=== PATIENT | female | born 1985 | race Hispanic/Latino ===

== ENCOUNTER 2018-04-22 20:13 | Emergency (ER) | payer SELFPAY ==
[2018-04-22] MEDS ORDERED: SODIUM CHLORIDE 0.9% 1000ML 1,000 ML IVS ONE (20:44)
[2018-04-22] MEDS ORDERED: KETOROLAC TROMETHAMINE INJ 30 MG/ML VIAL IV ONE (20:44)
[2018-04-22] MEDS ORDERED: ONDANSETRON ODT 8 MG TAB SL ONE (20:44)
--- NOTE | 2018-04-22 20:48 | ED.PDOC ---
History of Present Illness - General Chief Complaint: Abdominal Pain Stated Complaint: Abd pain and cramping Time Seen by Provider: 04/22/18 20:44 Information Source: patient Exam Limitations: no limitations - History of Present Illness Initial Comments: patient comes in today for severe abdominal pain. Patient states this morning she ate breakfast at [employer] that did not sit well with her. She later had reflux and severe nausea and subsequently emesis. She had no fever or chills. She did have some loose stools. In the meantime her abdominal pain started worsening with severe abdominal cramping listed as a 10/10 in severity. Patient states it does not radiate but the pain just has not gotten better and seems to be getting worse. She has had problems with abdominal pain in the past especially after she eats something like [employer] or ice cream. Patient has known gallbladder stones but she has not had attack for over a year and she states that he does not normally hurt this badly. Patient states she normally watches what she eats and very rarely eats processed foods. He denies any past medical issues. She did have a hysterectomy and subsequently did have to have a second surgery for a ruptured vaginal cuff. Patient has not had any difficulty since the repair. Patient does not smoke, drink, take illicit sepsis, or take knxb-yhb-bnednez medications. Abdominal Pain Onset Location: RUQ, LUQ, epigastric Pain Radiation: no radiation Quality: severe, sharpness Timing/Duration: 7-24 hours Improving Factors: nothing Worsening Factors: eating Associated Symptoms: heartburn, nausea/vomiting Review of Systems - Review of Systems Constitutional: States: no symptoms reported, chills. Denies: fever EENTM: States: no symptoms reported. Denies: eye pain, ear pain, nose pain, throat pain Respiratory: States: no symptoms reported. Denies: cough, short of breath, wheezing Cardiology: States: no symptoms reported. Denies: chest pain, edema, palpitations Gastrointestinal/Abdominal: States: see HPI, abdominal pain, diarrhea, nausea, vomiting Genitourinary: States: no symptoms reported. Denies: discharge, dysuria, frequency Musculoskeletal: States: no symptoms reported Skin: States: no symptoms reported Past Medical History (General) - Patient Medical History Hx Seizures: No Hx Stroke: No Hx Asthma: No Hx Congestive Heart Failure: No Hx Hypertension: No Hx Diabetes: No Hx Cancer: No Hx Hepatitis C: No Hx MRSA: No Surgical History: Hysterectomy - Vaccination History Hx Tetanus, Diphtheria Vaccination: No Hx Influenza Vaccination: No Hx Pneumococcal Vaccination: No Immunizations Up to Date: No - Social History Hx Tobacco Use: No Hx Alcohol Use: No Hx Substance Use: No Hx Substance Use Treatment: No Hx Depression: No - Female History Patient is a Female of Child Bearing Age (10 -59 yrs old): Yes Patient : No Family Medical History - Family History Mother Living Status: Still Living Hx Family Hypertension: Yes Hx Family;Other: Hx of TB Physical Exam - Physical Exam General Appearance: Alert, Restless Eyes, Ears, Nose, Throat Exam: PERRL/EOMI, normal ENT inspection, TMs normal, pharynx normal Neck: non-tender, full range of motion, supple, normal inspection Respiratory: chest non-tender, lungs clear, normal breath sounds, no respiratory distress Cardiovascular/Chest: normal peripheral pulses, regular rate, rhythm, no edema, no gallop, no JVD, no murmur Peripheral Pulses: No deficit Gastrointestinal/Abdominal: soft, abnormal bowel sounds - hypoactive BS, distended, tenderness - TTP at epigastric area and LUQ and RUQ no rebound and no guarding Back Exam: no CVA tenderness Neurologic: alert, oriented x 3 Progress - Progress Progress: Patient doing much better after IVF and Toradol. Patient counseled to stay away from fatty meals and fast food. She voices understanding. She will return to ER for return to pain, intractable emesis, or worsening symptoms. 04/22/18 21:37 - Results/Orders Results/Orders: Patient Name: ARGELIA HUSAIN Gender: Female Date of : 1985 Referring Physician: BERNARDINO GARCIA Organization: [facility] Accession Number: [id number] Requested Date: April 22, 2018 20:44 Report Status: Final Requested Procedure: 1 Procedure Description: Abdoment/Pelvis w/o Contrast Modality: CT Findings Reporting MD: Daniella Saha Fellow MD: Not available Dictation Time: [employer]: Not available Staff Pharmacist Date: EXAM DESCRIPTION: Abdoment/Pelvis w/o Contrast CLINICAL HISTORY: 33 years Female, severe pain/known gallbladder disease Comparison: 07/02/2010 TECHNIQUE: Contiguous axial images of the abdomen and pelvis were obtained followed by reconstruction images. This exam was performed according to our departmental dose-optimization program, which includes automated exposure control, adjustment of the mA and/or kV according to patient size and/or use of iterative reconstruction technique. FINDINGS: Lung bases: Minimal left basilar subsegmental atelectasis. Liver: No gross finding. Gallbladder/Bile ducts: Partially contracted gallbladder with multiple gallstones. No finding to suggest pericholecystic fluid or significant pericholecystic inflammatory changes. No intra or extrahepatic bile duct dilatation. Spleen: Within normal limits Pancreas: Within normal limits Adrenal glands: Within normal limits Kidneys/Bladder: No renal stones. No hydronephrosis. No pericholecystic fluid. GI tract: No evidence of obstruction or active inflammatory process. Postsurgical changes in the expected region of the appendix. Uterus/adnexa: Uterus not identified, likely surgically removed. No suspicious adnexal lesion. [facility]. [address] [place] [address] F [phone] [email or web address] Report exported on Apr 22, 2018 21:31:23 [id number] - Page 2 of 2 Vascular structures: Within normal limits in this unenhanced study Free fluid: No free fluid. Lymph nodes: No radiographically enlarged lymph nodes Soft tissues: Anterior lower abdomen surgical scar. Bones: No acute osseous finding IMPRESSION: 1. No acute intra-abdominal finding in this unenhanced study. 2. Cholelithiasis without imaging findings of acute cholecystitis. Additional correlation with a right upper quadrant abdomen ultrasound can be obtained as clinically warranted 04/22/18 20:44 Sodium Chloride 0.9% 1000ML [Ns 1000 ml] 1,000 ml IVS ONCE 04/22/18 21:20 URINALYSIS Stat Laboratory Results WBC 9.0 K/mm3 (4.8-10.8) 04/22/18 20:44 RBC 4.68 M/mm3 (4.20-5.40) 04/22/18 20:44 Hgb 12.6 gm/dL (12.0-16.0) 04/22/18 20:44 Hct 37.7 % (36.0-47.0) 04/22/18 20:44 MCV 80.5 fl (81.0-99.0) L 04/22/18 20:44 MCH 26.9 pg (27.0-31.0) L 04/22/18 20:44 MCHC 33.5 g/dL (33.0-37.0) 04/22/18 20:44 RDW 16.1 % (11.5-14.5) H 04/22/18 20:44 Plt Count 263 K/mm3 (130-400) 04/22/18 20:44 MPV 8.2 fl (7.40-10.4) 04/22/18 20:44 Absolute Neuts (auto) 6.60 K/uL (1.8-6.8) 04/22/18 20:44 Absolute Lymphs (auto) 1.60 K/uL (1.0-3.4) 04/22/18 20:44 Absolute Monos (auto) 0.50 K/uL (0.2-0.8) 04/22/18 20:44 Absolute Eos (auto) 0.30 K/uL (0.0-0.4) 04/22/18 20:44 Absolute Basos (auto) 0.00 K/uL (0.0-0.1) 04/22/18 20:44 Neutrophils % 73.7 % (42.0-78.0) 04/22/18 20:44 Lymphocytes % 17.5 % (20.0-50.0) L 04/22/18 20:44 Monocytes % 5.5 % (2.0-9.0) 04/22/18 20:44 Eosinophils % 2.9 % (1.0-5.0) 04/22/18 20:44 Basophils % 0.4 % (0.0-2.0) 04/22/18 20:44 Sodium 137 mmol/L (135-145) 04/22/18 20:44 Potassium 3.6 mmol/L (3.6-5.0) 04/22/18 20:44 Chloride 104 mmol/L (101-111) 04/22/18 20:44 Carbon Dioxide 26 mmol/L (21-31) 04/22/18 20:44 Anion Gap 10.6 (12-18) L 04/22/18 20:44 BUN 6 mg/dL (7-18) L 04/22/18 20:44 Creatinine 0.46 mg/dL (0.6-1.3) L 04/22/18 20:44 BUN/Creatinine Ratio 13.0 (10-20) 04/22/18 20:44 Random Glucose 101 mg/dL (70-105) 04/22/18 20:44 Serum Osmolality 271.6 mOsm/L (275-295) L 04/22/18 20:44 Calcium 9.4 mg/dL (8.4-10.2) 04/22/18 20:44 Total Bilirubin 0.9 mg/dL (0.2-1.0) 04/22/18 20:44 AST 26 IU/L (10-42) 04/22/18 20:44 ALT 24 IU/L (10-60) 04/22/18 20:44 Alkaline Phosphatase 117 IU/L (42-121) 04/22/18 20:44 Serum Total Protein 7.5 gm/dL (6.4-8.2) 04/22/18 20:44 Albumin 4.1 g/dl (3.2-5.5) 04/22/18 20:44 Globulin 3.4 gm/dL (2.3-3.5) 04/22/18 20:44 Albumin/Globulin Ratio 1.2 (1.1-1.9) 04/22/18 20:44 Amylase 56 U/L (28-100) 04/22/18 20:44 Lipase 26 U/L (22-51) 04/22/18 20:44 Departure - Departure Clinical Impression: Gallbladder attack Disposition: Discharge to Home or Self Care Condition: Good Departure Forms: ED Discharge - Pt. Copy, Patient Portal Self Enrollment Instructions: DI for Abdominal Pain-Adult Diet: low fat, low cholesterol Referrals: Ginger Guzman NP [Primary Care Provider] - 1-2 Weeks Home Medications: Ambulatory Orders Meclizine HCl 25 mg PO Q6HR PRN #20 tab 04/26/16 Additional Instructions: return to ER for return to pain, intractable emesis, or worsening symptoms.
--- NOTE | 2018-04-22 21:29 | CT ---
EXAM DESCRIPTION: Abdoment/Pelvis w/o Contrast CLINICAL HISTORY: 33 years Female, severe pain/known gallbladder disease Comparison: 07/02/2010 TECHNIQUE: Contiguous axial images of the abdomen and pelvis were obtained followed by reconstruction images. This exam was performed according to our departmental dose-optimization program, which includes automated exposure control, adjustment of the mA and/or kV according to patient size and/or use of iterative reconstruction technique. FINDINGS: Lung bases: Minimal left basilar subsegmental atelectasis. Liver: No gross finding. Gallbladder/Bile ducts: Partially contracted gallbladder with multiple gallstones. No finding to suggest pericholecystic fluid or significant pericholecystic inflammatory changes. No intra or extrahepatic bile duct dilatation. Spleen: Within normal limits Pancreas: Within normal limits Adrenal glands: Within normal limits Kidneys/Bladder: No renal stones. No hydronephrosis. No pericholecystic fluid. GI tract: No evidence of obstruction or active inflammatory process. Postsurgical changes in the expected region of the appendix. Uterus/adnexa: Uterus not identified, likely surgically removed. No suspicious adnexal lesion. Vascular structures: Within normal limits in this unenhanced study Free fluid: No free fluid. Lymph nodes: No radiographically enlarged lymph nodes Soft tissues: Anterior lower abdomen surgical scar. Bones: No acute osseous finding IMPRESSION: 1. No acute intra-abdominal finding in this unenhanced study. 2. Cholelithiasis without imaging findings of acute cholecystitis. Additional correlation with a right upper quadrant abdomen ultrasound can be obtained as clinically warranted. Electronically signed by: Daniella Saha MD 04/22/2018 9:27 PM CDT
[2018-04-22] MEDS ORDERED: ALUM & MAG HYDROX-SIMETHICONE 30 ML, LIDOCAINE VISCOUS 2% 15 ML PO ONE ×2 (22:30)
[2018-04-22] MEDS ORDERED: ALUM & MAG HYDROX-SIMETHICONE 30 ML UD ONE (22:33)
[2018-04-22] MEDS ORDERED: LIDOCAINE HCL 2% (MOUTH-THROAT) 15 ML UD ONE (22:33)
[2018-04-22 22:41] VITALS: BP 111/67; TEMP 98.2; O2SAT 99
== END 2018-04-22 22:41 | disposition home or self-care (01) ==
LOC: ER 20:13
DX: K80.20 Calculus of gallbladder without cholecystitis without obstruction (principal); R19.7 Diarrhea, unspecified; R11.2 Nausea with vomiting, unspecified
CPT/HCPCS: 36415; 74176; 80053; 81001; 82150; 83690; 85025; J1885; J7030

== ENCOUNTER 2018-04-27 08:23 | Emergency (ER) | payer SELFPAY ==
[2018-04-27 08:35] VITALS: TEMP 98.4
[2018-04-27] MEDS ORDERED: ONDANSETRON INJ 4 MG/2 ML VIAL IM ONE (08:43)
[2018-04-27] MEDS ORDERED: MORPHINE SULFATE INJ 10 MG/ML VIAL IM ONE (08:43)
--- NOTE | 2018-04-27 08:46 | ED.PDOC ---
History of Present Illness - General Chief Complaint: Abdominal Pain Time Seen by Provider: 04/27/18 08:42 Information Source: patient - History of Present Illness Initial Comments: SHE WAS HERE WEDNESDAY AFTER EATING GRAVY AND BISCUITS AT [facility]. SHE WAS WORKED UP WITH LAB AND A CT ABDOMEN AND PELVIS-NEGATIVE. SHE RETURNS TODAY WITH LEFT SIDED LUQ PAIN AND CHEST PAIN THAT INCREASES WITH DEEP INSPIRATION. DENIES FEVER, HAS HAD NAUSEA BUT NO DIARRHEA. Abdominal Pain Onset Location: LUQ Pain Radiation: chest Quality: stabbing Timing/Duration: days Improving Factors: nothing Worsening Factors: other - DEEP INSPIRATION Associated Symptoms: denies symptoms Review of Systems - Review of Systems Constitutional: States: no symptoms reported EENTM: States: no symptoms reported Respiratory: States: short of breath Cardiology: States: chest pain Gastrointestinal/Abdominal: States: abdominal pain Genitourinary: States: no symptoms reported Musculoskeletal: States: no symptoms reported Skin: States: no symptoms reported Neurological: States: no symptoms reported Endocrine: States: no symptoms reported Hematologic/Lymphatic: States: no symptoms reported All other Systems: Reviewed and Negative Past Medical History (General) - Patient Medical History Hx Seizures: No Hx Stroke: No Hx Asthma: No Hx of COPD: No Hx Cardiac Disorders: No Hx Congestive Heart Failure: No Hx Hypertension: No Hx Diabetes: No Hx Cancer: No Hx Hepatitis C: No Hx MRSA: No - Vaccination History Hx Tetanus, Diphtheria Vaccination: No Hx Influenza Vaccination: No Hx Pneumococcal Vaccination: No Immunizations Up to Date: No - Social History Hx Tobacco Use: No Hx Chewing Tobacco Use: No Hx Alcohol Use: No Hx Substance Use: No Hx Substance Use Treatment: No Hx Depression: No Feels Threatened In Home Enviroment: No Feels Threatened In a Relationship: No Hx Physical Abuse: No Hx Emotional Abuse: No Hx Suspected Abuse: No - Female History Patient is a Female of Child Bearing Age (10 -59 yrs old): Yes Patient : No - Triage Comment ED Triage Comment: hx of Hyst Family Medical History - Family History Mother Living Status: Still Living Hx Family Hypertension: Yes Hx Family;Other: Hx of TB Physical Exam - Physical Exam General Appearance: Alert, Obvious distress, Well Developed, Well Groomed, Well Nourished Eyes, Ears, Nose, Throat Exam: PERRL/EOMI, normal ENT inspection, pharynx normal Neck: non-tender, full range of motion, supple, normal inspection Respiratory: chest non-tender, lungs clear, normal breath sounds, no respiratory distress Cardiovascular/Chest: normal peripheral pulses, regular rate, rhythm, no edema Peripheral Pulses: No deficit Gastrointestinal/Abdominal: normal bowel sounds, non tender, soft, no organomegaly, no pulsatile mass Rectal Exam: deferred Back Exam: normal inspection Extremity: normal range of motion Neurologic: no motor/sensory deficits, alert, normal mood/affect, oriented x 3 Skin Exam: normal color Lymphatic: no adenopathy Progress - Results/Orders Results/Orders: THE X RAY HAS A SMALL LEFT SIDED EFFUSION ON THE LEFT COSTODIAPHRAGMATIC ANGLE, COULD BE FLUID AN INFILTRATE OR ATELECTASIS. GIVEN THE AMOUNT OF PAIN I WILL TREAT A PNEUMONIA AND THE PATIENT WILL F/U THE PCP IN 7-10 DAYS. Departure - Departure Clinical Impression: Pleurisy with effusion Community acquired pneumonia Qualifiers: Laterality: left Lung location: lower lobe of lung Qualified Code(s): J18.1 - Lobar pneumonia, unspecified organism Time of Disposition: 09:49 Disposition: Discharge to Home or Self Care Condition: Good Departure Forms: ED Discharge - Pt. Copy, Patient Portal Self Enrollment Instructions: Pneumonia in Adults Referrals: Ginger Guzman NP [Primary Care Provider] - 1-2 Weeks Prescriptions: Tramadol HCl 50 mg PO Q6HRS #20 tab Diclofenac Potassium 50 mg PO Q8HRS #21 tab Amoxicillin & Pot Clavulanate [Augmentin Tab] 875 mg PO BID #20 tab Home Medications: Ambulatory Orders Meclizine HCl 25 mg PO Q6HR PRN #20 tab 04/26/16 Amoxicillin & Pot Clavulanate [Augmentin Tab] 875 mg PO BID #20 tab 04/27/18 Diclofenac Potassium 50 mg PO Q8HRS #21 tab 04/27/18 Tramadol HCl 50 mg PO Q6HRS #20 tab 04/27/18
--- NOTE | 2018-04-27 09:29 | RAD ---
Procedure: XR ABDOMEN SUPINE AND ERECT WITH CHEST (ABD ACUTE SERIES) Exam Date: 04/27/2018 Ordering Provider: Nir Alberto Clinical Indication: ABDOMEN AND CHEST PAIN Comparison: 04/22/2018 CT abdomen pelvis Findings: Upright chest x-ray: Cardiomediastinal silhouette is unremarkable. Left basilar atelectasis and/or infiltrate. Right lung is clear. Question a small left pleural effusion. No significant effusion on the right. No pneumothorax. Flat and upright abdomen: Nonobstructive bowel gas pattern. There is no pneumoperitoneum. There are no suspicious calcifications. No acute osseous abnormalities. Impression: 1. Left basilar atelectasis and/or infiltrate with possible small left pleural effusion. Electronically signed by: Sai Diaz MD 04/27/2018 9:28 AM CDT
[2018-04-27] MEDS ORDERED: cefTRIAXone SODIUM 1 GM VIAL IM ONE (09:44)
[2018-04-27] MEDS ORDERED: LIDOCAINE 1% 10 ML VIAL INJ ONE (09:56)
[2018-04-27 10:10] VITALS: BP 120/76; O2SAT 96
== END 2018-04-27 10:17 | disposition home or self-care (01) ==
LOC: ER 08:23
DX: J18.9 Pneumonia, unspecified organism (principal); R10.12 Left upper quadrant pain; Z86.11 Personal history of tuberculosis
CPT/HCPCS: 74019; J0696; J2270; J2405

== ENCOUNTER 2019-06-28 15:45 | Emergency (ER) | payer SELFPAY ==
--- NOTE | 2019-06-28 16:20 | ED.PDOC ---
History of Present Illness - General Chief Complaint: Abdominal Pain Time Seen by Provider: 06/28/19 16:19 Information Source: patient Exam Limitations: no limitations - History of Present Illness Initial Comments: 34 yo F who presents for lower abd pain onset this am with associated L flank pain and urinary frequency. Pain is constant, nonradiating, sharp. Denies f/c, cough, congestion, CP, SOB, N/V/D, dysuria, hematuria, vag sx. Review of Systems - Review of Systems Constitutional: Denies: chills, fever EENTM: States: no symptoms reported Respiratory: Denies: cough, short of breath Cardiology: Denies: chest pain, palpitations Gastrointestinal/Abdominal: Denies: constipation, diarrhea, nausea, vomiting Genitourinary: States: frequency, other - L flank pain. Denies: discharge, dysuria, hematuria Musculoskeletal: Denies: back pain, neck pain Skin: Denies: change in color, rash Neurological: Denies: headache, numbness, weakness Endocrine: Denies: increased thirst, increased urine Past Medical History (General) - Patient Medical History Hx Seizures: No Hx Stroke: No Hx Asthma: No Hx of COPD: No Hx Cardiac Disorders: No Hx Congestive Heart Failure: No Hx Hypertension: No Hx Diabetes: No Hx Cancer: No Hx Hepatitis C: No Hx MRSA: No - Vaccination History Hx Tetanus, Diphtheria Vaccination: No Hx Influenza Vaccination: No Hx Pneumococcal Vaccination: No - Social History Hx Tobacco Use: No Hx Chewing Tobacco Use: No Hx Alcohol Use: No Hx Substance Use: No Hx Substance Use Treatment: No Hx Depression: No Hx Physical Abuse: No Hx Emotional Abuse: No Hx Suspected Abuse: No - Female History Patient : No Family Medical History - Family History Mother Living Status: Still Living Hx Family Hypertension: Yes Hx Family;Other: Hx of TB Physical Exam - Physical Exam General Appearance: Alert, Comfortable, No apparent distress, Well Developed, Well Nourished Eyes, Ears, Nose, Throat Exam: normal ENT inspection Neck: non-tender, full range of motion, supple Respiratory: chest non-tender, lungs clear, normal breath sounds, no respiratory distress, no accessory muscle use Cardiovascular/Chest: normal peripheral pulses, regular rate, rhythm, no edema, no gallop, no JVD, no murmur Peripheral Pulses: No deficit Gastrointestinal/Abdominal: normal bowel sounds, non tender, soft, no organomegaly, no pulsatile mass Back Exam: normal inspection, no CVA tenderness, no vertebral tenderness Extremity: normal range of motion, non-tender, normal inspection, no pedal edema, no calf tenderness Neurologic: no motor/sensory deficits, alert, normal mood/affect Skin Exam: normal color, warm/dry Progress - Progress Progress: 06/28/19 18:55 I have explained and reviewed all results with the pt and provided a copy of her results. Pt is feeling improved. I explained that emergent conditions may arise and to return to the ER for new, worsening, or any persistent conditions. I've explained the importance of f/u for recheck. All questions and concerns addressed at this time. Pt understands and agrees with plan. Pt well appearing, NAD, is stable for discharge. Pt and family are comfortable wtih d/c home. Tiffany Looney MD Emergency Medicine Physician Billing Number [id number] - Results/Orders Results/Orders: 06/28/19 17:34 Hold Metformin x 48Hrs [id number] Laboratory Results - last 24 hr 06/28/19 06/28/19 06/28/19 16:20 16:20 16:30 WBC 6.5 RBC 4.52 Hgb 12.3 Hct 36.5 MCV 80.8 L MCH 27.2 MCHC 33.6 RDW 14.7 H Plt Count 304 MPV 8.2 Absolute Neuts (auto) 4.70 Absolute Lymphs (auto) 1.20 Absolute Monos (auto) 0.40 Absolute Eos (auto) 0.10 Absolute Basos (auto) 0.00 Neutrophils % 72.7 Lymphocytes % 18.9 L Monocytes % 5.8 Eosinophils % 2.0 Basophils % 0.6 Sodium 142 Potassium 3.7 Chloride 107 Carbon Dioxide 24 Anion Gap 14.7 BUN 9 Creatinine 0.52 L BUN/Creatinine Ratio 17.3 Random Glucose 111 H Serum Osmolality 282.5 Calcium 8.8 Total Bilirubin 1.5 H AST 26 ALT 36 Alkaline Phosphatase 148 H Serum Total Protein 8.0 Albumin 4.4 Globulin 3.6 H Albumin/Globulin Ratio 1.2 Urine Color Yellow Urine Appearance Clear Urine pH 5.5 Ur Specific [place] >= 1.030 Urine Protein Negative Urine Glucose (UA) Negative Urine Ketones Negative Urine Blood Negative Urine Nitrite Negative Urine Bilirubin Negative Urine Urobilinogen 0.2 Ur Leukocyte Esterase Negative Urine RBC 0-1 Urine WBC 1-3 Ur Epithelial Cells 5-10 Urine Bacteria 1+ Urine Mucus Small Urine HCG, Qual 06/28/19 16:34 WBC RBC Hgb Hct MCV MCH MCHC RDW Plt Count MPV Absolute Neuts (auto) Absolute Lymphs (auto) Absolute Monos (auto) Absolute Eos (auto) Absolute Basos (auto) Neutrophils % Lymphocytes % Monocytes % Eosinophils % Basophils % Sodium Potassium Chloride Carbon Dioxide Anion Gap BUN Creatinine BUN/Creatinine Ratio Random Glucose Serum Osmolality Calcium Total Bilirubin AST ALT Alkaline Phosphatase Serum Total Protein Albumin Globulin Albumin/Globulin Ratio Urine Color Urine Appearance Urine pH Ur Specific [place] Urine Protein Urine Glucose (UA) Urine Ketones Urine Blood Urine Nitrite Urine Bilirubin Urine Urobilinogen Ur Leukocyte Esterase Urine RBC Urine WBC Ur Epithelial Cells Urine Bacteria Urine Mucus Urine HCG, Qual Negative CT abd/pelvis with contrast: EXAM DESCRIPTION: CT ABDOMEN AND PELVIS WITH CONTRAST CLINICAL HISTORY: pain in the abdomen COMPARISON: Previous CT abdomen and pelvis April 22, 2018 TECHNIQUE: CT of the abdomen and pelvis are performed during IV bolus administration of 100 mL of Optiray 320. No oral contrast. FINDINGS: In the lower chest, the lung bases are clear. Trace right pleural effusion. Heart size is normal with small amount of pericardial fluid. CT abdomen Innumerable gallstones in the gallbladder. These were present on the previous study as well. Spleen is large measuring 14 cm in length. This appeared large on the previous study as well. Otherwise the liver, pancreas, adrenal glands, stomach and kidneys are and unremarkable in appearance. No inflammation around the pancreas. No renal stones or hydronephrosis. No bowel dilatation to suggest obstruction. No free air or free fluid. CT pelvis Appendix is surgically absent. Small cysts in the anterior lower abdomen appear benign and unchanged compared to the previous study. The more prominent cyst is in the region of the resected appendix 4.7 cm. The smaller cyst is posterior to the left rectus abdominis muscle 2.8 cm. With no change since previous study, malignant process is not thought likely. Lymphoceles, old hematomas or seromas thought most likely. Small mesenteric cysts or omental cysts might also be considered. Previous CT abdomen and pelvis July 28, 2009 and July 02, 2010 showed no pelvic cysts at that time. No inflammation around the cecum or terminal ileum or sigmoid colon. Bladder and distal ureters are negative for stones. Normal enhancement of pelvic vessels. No inguinal or lower pelvic adenopathy. Uterus and ovaries are not seen, evidently surgically absent. Bone window images are negative for fracture or lytic lesion. Coronal and sagittal reformatted images confirm the findings. IMPRESSION: Gallstones without changes to suggest acute cholecystitis. Splenomegaly. Benign-appearing cysts in the pelvis, unchanged from previous. This exam was performed according to our departmental dose-optimization program, which includes automated exposure control, adjustment of the mA and/or kV according to patient size and/or use of iterative reconstruction technique. Total DLP equals 2027.51 mGycm. Electronically signed by: Neftali Lane MD 06/28/2019 6:17 PM CARE TAKER Vital Signs - 24 hr 06/28/19 06/28/19 06/28/19 16:20 17:20 18:18 Temperature 97.6 F 99.2 F Pulse Rate [ 88 69 72 Left Radial] Respiratory 18 18 18 Rate Blood Pressure 119/87 116/69 118/78 [Left Arm] O2 Sat by Pulse 100 98 99 Oximetry 06/28/19 06/28/19 19:11 19:22 Temperature 99.8 F H 99.8 F H Pulse Rate [ 73 73 Left Radial] Respiratory 16 16 Rate Blood Pressure 122/81 122/81 [Left Arm] O2 Sat by Pulse 98 98 Oximetry Departure - Departure Clinical Impression: Abdominal pain Qualifiers: Abdominal location: unspecified location Qualified Code(s): R10.9 - Unspecified abdominal pain Time of Disposition: 18:54 Disposition: Discharge to Home or Self Care Health Concerns: Condition: stable Departure Forms: ED Discharge - Pt. Copy, Patient Portal Self Enrollment Instructions: DI for Abdominal Pain-Adult Referrals: Ginger Guzman NP [Primary Care Provider] - 1-5 Days Prescriptions: Nitrofurantoin Monohydrate Mac [Macrobid] 100 mg PO BID #10 capsule Home Medications: Ambulatory Orders Meclizine HCl 25 mg PO Q6HR PRN #20 tab 04/26/16 Amoxicillin & Pot Clavulanate [Augmentin Tab] 875 mg PO BID #20 tab 04/27/18 Diclofenac Potassium 50 mg PO Q8HRS #21 tab 04/27/18 Tramadol HCl 50 mg PO Q6HRS #20 tab 04/27/18 Nitrofurantoin Monohydrate Mac [Macrobid] 100 mg PO BID #10 capsule 06/28/19 Comments: Follow up: [facility] As needed, if symptoms worsen
[2019-06-28] MEDS ORDERED: KETOROLAC TROMETHAMINE INJ 30 MG/ML VIAL IV ONE (17:47)
--- NOTE | 2019-06-28 18:18 | CT ---
EXAM DESCRIPTION: CT ABDOMEN AND PELVIS WITH CONTRAST CLINICAL HISTORY: pain in the abdomen COMPARISON: Previous CT abdomen and pelvis April 22, 2018 TECHNIQUE: CT of the abdomen and pelvis are performed during IV bolus administration of 100 mL of Optiray 320. No oral contrast. FINDINGS: In the lower chest, the lung bases are clear. Trace right pleural effusion. Heart size is normal with small amount of pericardial fluid. CT abdomen Innumerable gallstones in the gallbladder. These were present on the previous study as well. Spleen is large measuring 14 cm in length. This appeared large on the previous study as well. Otherwise the liver, pancreas, adrenal glands, stomach and kidneys are and unremarkable in appearance. No inflammation around the pancreas. No renal stones or hydronephrosis. No bowel dilatation to suggest obstruction. No free air or free fluid. CT pelvis Appendix is surgically absent. Small cysts in the anterior lower abdomen appear benign and unchanged compared to the previous study. The more prominent cyst is in the region of the resected appendix 4.7 cm. The smaller cyst is posterior to the left rectus abdominis muscle 2.8 cm. With no change since previous study, malignant process is not thought likely. Lymphoceles, old hematomas or seromas thought most likely. Small mesenteric cysts or omental cysts might also be considered. Previous CT abdomen and pelvis July 28, 2009 and July 02, 2010 showed no pelvic cysts at that time. No inflammation around the cecum or terminal ileum or sigmoid colon. Bladder and distal ureters are negative for stones. Normal enhancement of pelvic vessels. No inguinal or lower pelvic adenopathy. Uterus and ovaries are not seen, evidently surgically absent. Bone window images are negative for fracture or lytic lesion. Coronal and sagittal reformatted images confirm the findings. IMPRESSION: Gallstones without changes to suggest acute cholecystitis. Splenomegaly. Benign-appearing cysts in the pelvis, unchanged from previous. This exam was performed according to our departmental dose-optimization program, which includes automated exposure control, adjustment of the mA and/or kV according to patient size and/or use of iterative reconstruction technique. Total DLP equals 7.51 mGycm. Electronically signed by: Neftali Lane MD 06/28/2019 6:17 PM BRUSH POL[employer]ER
[2019-06-28 19:12] VITALS: BP 122/81; TEMP 99.8; O2SAT 98
== END 2019-06-28 19:23 | disposition home or self-care (01) ==
LOC: ER 15:45
DX: R10.30 Lower abdominal pain, unspecified (principal); R35.0 Frequency of micturition; K80.20 Calculus of gallbladder without cholecystitis without obstruction; R16.1 Splenomegaly, not elsewhere classified; Z90.49 Acquired absence of other specified parts of digestive tract
CPT/HCPCS: 74177; 80053; 81001; 81025; 85025; J1885

== ENCOUNTER 2020-07-20 17:21 | Emergency (ER) | payer SELFPAY ==
--- NOTE | 2020-07-20 18:29 | ED.PDOC ---
History of Present Illness - General Chief Complaint: General Stated Complaint: Cough, sore throat, lower abd pain, nausea, tired Time Seen by Provider: 07/20/20 17:39 Source: patient, RN notes reviewed, Vital Signs reviewed Exam Limitations: no limitations - History of Present Illness Initial Comments: Patient is a 35-year-old white female who presents with complaints of sore throat, fatigue, malaise and body aches. This is been ongoing for the last 5 days. Nothing makes the symptoms better. She is worse with any type of exertion. She also complains of intermittent mild shortness of breath. The shortness of breath is worse with exertion. It is improved with rest. Timing/Duration: 1 week, getting worse Severity: moderate Improving Factors: nothing Worsening Factors: movement Associated Symptoms: cough, loss of appetite, malaise, shortness of breath, weakness, other - Sore throat Allergies/Adverse Reactions: Allergies Promethazine [From Phenergan] Adverse Reaction (Verified 07/20/20 17:48) Home Medications: Ambulatory Orders Meclizine HCl 25 mg PO Q6HR PRN #20 tab 04/26/16 Amoxicillin & Pot Clavulanate [Augmentin Tab] 875 mg PO BID #20 tab 04/27/18 Diclofenac Potassium 50 mg PO Q8HRS #21 tab 04/27/18 Tramadol HCl 50 mg PO Q6HRS #20 tab 04/27/18 Nitrofurantoin Monohydrate Mac [Macrobid] 100 mg PO BID #10 capsule 06/28/19 Methylprednisolone [Medrol Dose Alexandro] 4 mg PO DAILY 6 Days #21 tab 07/20/20 Review of Systems - Review of Systems Constitutional: States: see HPI, chills, fever, malaise, weakness EENTM: States: see HPI, throat pain. Denies: eye pain, blurred vision, double vision, nose congestion, mouth pain, mouth swelling Respiratory: States: see HPI, cough, short of breath. Denies: stridor, wheezing Cardiology: States: no symptoms reported. Denies: chest pain, palpitations, syncope Gastrointestinal/Abdominal: States: see HPI, abdominal pain, nausea. Denies: diarrhea, vomiting Musculoskeletal: States: no symptoms reported. Denies: back pain, joint pain, joint swelling, neck pain Skin: States: no symptoms reported. Denies: change in color, rash Neurological: States: see HPI, weakness. Denies: tingling, tremors Endocrine: States: no symptoms reported. Denies: increased hunger, increased thirst, increased urine Hematologic/Lymphatic: States: no symptoms reported. Denies: blood clots, easy bleeding, easy bruising All other Systems: Reviewed and Negative Past Medical History (General) - Patient Medical History Hx Seizures: No Hx Stroke: No Hx Dementia: No Hx Asthma: No Hx of COPD: No Hx Cardiac Disorders: No Hx Congestive Heart Failure: No Hx Pacemaker: No Hx Hypertension: No Hx Thyroid Disease: No Hx Diabetes: No Hx Gastroesophageal Reflux: No Hx Renal Disease: No Hx Cancer: No Hx of HIV: No Hx Hepatitis C: No Hx MRSA: No Surgical History: Hysterectomy - Vaccination History Hx Tetanus, Diphtheria Vaccination: No Hx Influenza Vaccination: No Hx Pneumococcal Vaccination: No - Social History Hx Tobacco Use: No Hx Chewing Tobacco Use: No Hx Alcohol Use: No Hx Substance Use: No Hx Substance Use Treatment: No Hx Depression: No Hx Physical Abuse: No Hx Emotional Abuse: No Hx Suspected Abuse: No - Female History Patient is a Female of Child Bearing Age (10 -59 yrs old): No Patient : No - Hyst Family Medical History - Family History Mother Family History: No Known Living Status: Still Living Hx Family Asthma: No Hx Family Congestive Heart Failure: No Hx Family Hypertension: Yes Hx Family;Other: Hx of TB Physical Exam - Physical Exam General Appearance: Alert, Anxious, Comfortable, Well Developed, Well Groomed, Well Hydrated, Well Nourished Eye Exam: bilateral normal Ears, Nose, Throat: hearing grossly normal, pharyngeal erythema Neck: non-tender, full range of motion, supple Respiratory: chest non-tender, lungs clear, normal breath sounds, no respiratory distress, no accessory muscle use Cardiovascular/Chest: normal peripheral pulses, regular rate, rhythm, no edema, no gallop, no JVD, no murmur Peripheral Pulses: radial,right: 2+, radial,left: 2+ Gastrointestinal/Abdominal: normal bowel sounds, non tender, soft, no organomegaly, no pulsatile mass Back Exam: normal inspection, no CVA tenderness, no vertebral tenderness Extremity: normal range of motion, non-tender, normal inspection Neurologic: steaming cabinet tender II-XII nml as tested, no motor/sensory deficits, alert, normal mood/affect, oriented x 3 Skin Exam: normal color, warm/dry Lymphatic: other - Bilateral submandibular lymphadenopathy. Progress - Progress Progress: Differential diagnosis: Strep, flu, Covid, bronchial URI among others. 01/02 19:14 Patient strep test is negative. Her respiratory to panel is pending. The panel will take at least another hour. Plan on discharge home at this time and will call patient with results. I discussed this plan of care with the patient and she voices understanding and agreement. Sundar Larose M.D. #[id number] 07/20/20 19:42 Patient's respiratory panel has returned and is negative for Covid and other respiratory illnesses. Will have nursing contact patient with results. Plan on discharge diagnosis of viral URI and sore throat. - Results/Orders Results/Orders: 07/20/20 17:51 RESPIRATORY PANEL 2 Stat STREP A SCREEN CULTURE Stat Laboratory Results - last 24 hr 07/20/20 17:51 Group A Strep Rapid Negative Respiratory to panel is pending Vital Signs 07/20/20 07/20/20 17:25 17:28 Temperature 97.1 F L Pulse Rate [ 84 84 Pulse ox] Respiratory 18 18 Rate Blood Pressure 142/83 [L arm] O2 Sat by Pulse 99 Oximetry Respiratory to panel: Negative for Covid and negative for all other tested viral illnesses Departure - Departure Clinical Impression: Sore throat and laryngitis, Viral upper respiratory tract infection with cough Time of Disposition: 19:15 Disposition: Discharge to Home or Self Care Condition: Good Departure Forms: ED Discharge - Pt. Copy, Patient Portal Self Enrollment Instructions: Viral Upper Respiratory Infection, Adult (DC), Laryngitis (DC) Diet: resume usual diet Activity: increase activity as tolerated Referrals: Ginger Guzman NP [Primary Care Provider] - 1-5 Days Prescriptions: Methylprednisolone [Medrol Dose Alexandro] 4 mg PO DAILY 6 Days #21 tab Home Medications: Ambulatory Orders Meclizine HCl 25 mg PO Q6HR PRN #20 tab 04/26/16 Amoxicillin & Pot Clavulanate [Augmentin Tab] 875 mg PO BID #20 tab 04/27/18 Diclofenac Potassium 50 mg PO Q8HRS #21 tab 04/27/18 Tramadol HCl 50 mg PO Q6HRS #20 tab 04/27/18 Nitrofurantoin Monohydrate Mac [Macrobid] 100 mg PO BID #10 capsule 06/28/19 Methylprednisolone [Medrol Dose Alexandro] 4 mg PO DAILY 6 Days #21 tab 07/20/20
[2020-07-20 19:35] VITALS: O2SAT 100
[2020-07-20 19:37] VITALS: BP 133/82; TEMP 98.1
== END 2020-07-20 19:25 | disposition home or self-care (01) ==
LOC: ER 17:21
DX: J06.9 Acute upper respiratory infection, unspecified (principal); J02.9 Acute pharyngitis, unspecified; J04.0 Acute laryngitis; R10.9 Unspecified abdominal pain; R11.0 Nausea; Z20.828 Contact with and (suspected) exposure to other viral communicable diseases; Z88.8 Allergy status to other drugs, medicaments and biological substances

== ENCOUNTER 2020-07-22 02:19 | Emergency (ER) | payer SELFPAY ==
[2020-07-22] MEDS ORDERED: SODIUM CHLORIDE 0.9% 1000ML 1,000 ML IVS ONE (02:37)
--- NOTE | 2020-07-22 02:40 | ED.PDOC ---
History of Present Illness - General Chief Complaint: Abdominal Pain Stated Complaint: left flank pain Time Seen by Provider: 07/22/20 02:20 Information Source: patient, RN notes reviewed, Vital Signs reviewed, old records Exam Limitations: no limitations - History of Present Illness Initial Comments: 35 yo F comes in with 2 days of LLQ pain. states pain was gradual in onset, cramping. constant, not relieved with bm. Hx of total hysterectomy. does have mild cough, congestion and sore throat. Was seen here yesterday and had negative covid/flu/strep. no fever. no dysuria. Afrter reviewing patient chart, patient has had 11 abd/pelvis ct scans. Abdominal Pain Onset Location: LLQ Quality: cramping, sharpness Timing/Duration: days - 2, constant Associated Symptoms: headache Review of Systems - Review of Systems Constitutional: Denies: chills, fever EENTM: States: nose congestion, throat pain. Denies: blurred vision Respiratory: States: cough. Denies: short of breath Cardiology: Denies: chest pain, palpitations Gastrointestinal/Abdominal: States: abdominal pain, diarrhea. Denies: nausea, vomiting Genitourinary: Denies: dysuria, frequency, hematuria Musculoskeletal: States: back pain. Denies: joint pain, muscle pain Skin: Denies: rash Neurological: States: headache. Denies: numbness, paresthesia, weakness Endocrine: Denies: unexplained weight gain, unexplained weight loss Hematologic/Lymphatic: Denies: easy bleeding, easy bruising Past Medical History (General) - Patient Medical History Hx Seizures: No Hx Stroke: No Hx Dementia: No Hx Asthma: No Hx of COPD: No Hx Cardiac Disorders: No Hx Congestive Heart Failure: No Hx Pacemaker: No Hx Hypertension: No Hx Thyroid Disease: No Hx Diabetes: No Hx Gastroesophageal Reflux: No Hx Renal Disease: No Hx Cancer: No Hx of HIV: No Hx Hepatitis C: No Hx MRSA: No Surgical History: Hysterectomy - Vaccination History Hx Tetanus, Diphtheria Vaccination: No Hx Influenza Vaccination: No Hx Pneumococcal Vaccination: No - Social History Hx Tobacco Use: No Hx Chewing Tobacco Use: No Hx Alcohol Use: No Hx Substance Use: No Hx Substance Use Treatment: No Hx Depression: No Hx Physical Abuse: No Hx Emotional Abuse: No Hx Suspected Abuse: No - Female History Patient : No - Hyst Family Medical History - Family History Grandparents Hx Family Diabetes: Yes Mother Family History: No Known Living Status: Still Living Hx Family Asthma: No Hx Family Congestive Heart Failure: No Hx Family Hypertension: Yes Hx Family;Other: Hx of TB Physical Exam - Physical Exam General Appearance: Alert, Comfortable, No apparent distress, Well Developed, Well Groomed, Well Hydrated, Well Nourished Eyes, Ears, Nose, Throat Exam: normal ENT inspection Neck: non-tender, full range of motion, supple, normal inspection Respiratory: chest non-tender, lungs clear, normal breath sounds, no respiratory distress, no accessory muscle use Cardiovascular/Chest: normal peripheral pulses, regular rate, rhythm, no edema, no gallop, no JVD, no murmur Peripheral Pulses: 2+ Gastrointestinal/Abdominal: normal bowel sounds, non tender, soft, no organomegaly, no pulsatile mass Rectal Exam: deferred Back Exam: normal inspection, no CVA tenderness, no vertebral tenderness Extremity: normal range of motion, non-tender, normal inspection, no pedal edema, no calf tenderness, normal capillary refill 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 she has had 11 ct in our system alone. Will hold off on repeat ct. will give pain medication. no evidence of acute abdomen. will get xray to rule out sbo. 07/22/20 02:37 Sodium Chloride 0.9% 1000ML [Ns 1000 ml] 1,000 ml IVS ONCE 07/22/20 02:52 Hold Metformin x 48Hrs [id number] Abdomen/Pelvis w/Contrast [CT] Stat 07/22/20 03:24 Abdomen Flat & Upright [RAD] Stat Laboratory Results WBC 6.7 K/mm3 (4.8-10.8) 07/22/20 02:37 RBC 4.04 M/mm3 (4.20-5.40) L 07/22/20 02:37 Hgb 11.5 gm/dL (12.0-16.0) L 07/22/20 02:37 Hct 33.3 % (36.0-47.0) L 07/22/20 02:37 MCV 82.4 fl (81.0-99.0) 07/22/20 02:37 MCH 28.6 pg (27.0-31.0) 07/22/20 02:37 MCHC 34.7 g/dL (33.0-37.0) 07/22/20 02:37 RDW 17.1 % (11.5-14.5) H 07/22/20 02:37 Plt Count 293 K/mm3 (130-400) 07/22/20 02:37 MPV 7.8 fl (7.40-10.4) 07/22/20 02:37 Absolute Neuts (auto) 5.30 K/uL (1.8-6.8) 07/22/20 02:37 Absolute Lymphs (auto) 1.10 K/uL (1.0-3.4) 07/22/20 02:37 Absolute Monos (auto) 0.30 K/uL (0.2-0.8) 07/22/20 02:37 Absolute Eos (auto) 0.00 K/uL (0.0-0.4) 07/22/20 02:37 Absolute Basos (auto) 0.00 K/uL (0.0-0.1) 07/22/20 02:37 Neutrophils % 78.9 % (42.0-78.0) H 07/22/20 02:37 Lymphocytes % 17.0 % (20.0-50.0) L 07/22/20 02:37 Monocytes % 3.9 % (2.0-9.0) 07/22/20 02:37 Eosinophils % 0.0 % (1.0-5.0) L 07/22/20 02:37 Basophils % 0.2 % (0.0-2.0) 07/22/20 02:37 Sodium 137 mmol/L (135-145) 07/22/20 02:37 Potassium 3.7 mmol/L (3.6-5.0) 07/22/20 02:37 Chloride 101 mmol/L (101-111) 07/22/20 02:37 Carbon Dioxide 24 mmol/L (21-31) 07/22/20 02:37 Anion Gap 15.7 (12-18) 07/22/20 02:37 BUN 12 mg/dL (7-18) 07/22/20 02:37 Creatinine 0.47 mg/dL (0.6-1.3) L 07/22/20 02:37 BUN/Creatinine Ratio 25.5 (10-20) H 07/22/20 02:37 Random Glucose 121 mg/dL (70-105) H 07/22/20 02:37 Serum Osmolality 274.8 mOsm/L (275-295) L 07/22/20 02:37 Calcium 9.4 mg/dL (8.4-10.2) 07/22/20 02:37 Total Bilirubin 1.5 mg/dL (0.2-1.0) H 07/22/20 02:37 AST 28 IU/L (10-42) 07/22/20 02:37 ALT 35 IU/L (10-60) 07/22/20 02:37 Alkaline Phosphatase 133 IU/L (42-121) H 07/22/20 02:37 Serum Total Protein 8.5 gm/dL (6.4-8.2) H 07/22/20 02:37 Albumin 4.5 g/dl (3.2-5.5) 07/22/20 02:37 Globulin 4.0 gm/dL (2.3-3.5) H 07/22/20 02:37 Albumin/Globulin Ratio 1.1 (1.1-1.9) 07/22/20 02:37 Lipase 37 U/L (22-51) 07/22/20 02:37 Urine Color Yellow (Yellow) 07/22/20 02:37 Urine Appearance Clear (Clear) 07/22/20 02:37 Urine pH 6.0 (4.5-7.8) 07/22/20 02:37 Ur Specific [place] 1.020 (1.005-1.030) 07/22/20 02:37 Urine Protein Negative mg/dL 07/22/20 02:37 Urine Glucose (UA) Negative mg/dL (Negative) 07/22/20 02:37 Urine Ketones Negative mg/dL (NEGATIVE) 07/22/20 02:37 Urine Blood Negative (Negative) 07/22/20 02:37 Urine Nitrite Negative 07/22/20 02:37 Urine Bilirubin Negative (NEGATIVE) 07/22/20 02:37 Urine Urobilinogen 0.2 mg/dL (0.2-1.0) 07/22/20 02:37 Ur Leukocyte Esterase Negative (Negative) 07/22/20 02:37 Urine RBC 0-1 /hpf 07/22/20 02:37 Urine WBC 0 /hpf 07/22/20 02:37 Ur Epithelial Cells 1-3 /hpf 07/22/20 02:37 Urine Bacteria 0 07/22/20 02:37 - Results/Orders Results/Orders: when caring for this patient included: nurse notes, prior records, etc. The history and assessments from nurses notes were reviewed and considered, and the patient's home medication list was also reviewed and considered. My assessment and the results of testing completed here in the ED were discussed with the patient/family. All questions were answered, and they express understanding of my assessment and the plan. They have been instructed to return if their symptoms worsen, and have been asked to follow up with their primary care physician to recheck today's presenting complaint. Strict return precautions given. I have reviewed medication, benefits, alternatives and side effects. Patient decided to proceed with medication. Janey Jiang DO #[id number] - EKG/XRAY/CT XRAY: abdomen - no acute pathology Departure - Departure Clinical Impression: Abdominal pain Qualifiers: Abdominal location: left lower quadrant Qualified Code(s): R10.32 - Left lower quadrant pain Time of Disposition: 03:49 Disposition: Discharge to Home or Self Care Condition: Fair Departure Forms: ED Discharge - Pt. Copy, Patient Portal Self Enrollment Instructions: DI for Abdominal Pain-Adult, Headache, Adult, Acute Abdomen (Belly Pain), Adult (DC) Diet: resume usual diet Activity: increase activity as tolerated Referrals: Ginger Guzman NP [Primary Care Provider] - 1-2 Days Prescriptions: Dicyclomine HCl [Bentyl] 20 mg PO QID PRN #20 tab PRN Reason: Abdominal Cramping Home Medications: Ambulatory Orders Dicyclomine HCl [Bentyl] 20 mg PO QID PRN #20 tab 07/22/20
[2020-07-22] MEDS ORDERED: MORPHINE SULFATE INJ 10 MG/ML VIAL IV ONE (02:54)
[2020-07-22] MEDS ORDERED: KETOROLAC TROMETHAMINE INJ 30 MG/ML VIAL IV ONE (03:19)
--- NOTE | 2020-07-22 03:46 | RAD ---
EXAM: Abdomen Flat Upright CLINICAL HISTORY: abd pain COMPARISON: None. TECHNIQUE: Supine and upright images of the abdomen were submitted. FINDINGS: Nonobstructive bowel gas pattern. No pneumatosis or pneumoperitoneum. No ectopic calcifications. Normal osseous structures. IMPRESSION: 1. No acute abnormality. Electronically signed by: Maciej Herron MD 07/22/2020 3:45 AM [employer]
[2020-07-22 04:07] VITALS: BP 114/66; TEMP 97.1; O2SAT 97
== END 2020-07-22 04:06 | disposition home or self-care (01) ==
LOC: ER 02:19
DX: R10.32 Left lower quadrant pain (principal); R19.7 Diarrhea, unspecified; R50.9 Fever, unspecified; J02.9 Acute pharyngitis, unspecified; R09.81 Nasal congestion; Z90.710 Acquired absence of both cervix and uterus; Z90.49 Acquired absence of other specified parts of digestive tract
CPT/HCPCS: 36415; 74019; 80053; 81001; 83690; 85025; J1885; J2270; J7030